=== PATIENT | male | born 1975 | race Caucasian/White ===

== ENCOUNTER 2023-12-05 14:14 | Emergency (ER) | payer MEDICAID ==
[~2023-12-05] VITALS: Ht 167.6 cm; Wt 100.6 kg
[2023-12-05 14:23] VITALS: BP 157/81; PULSE 90; RESP 18; TEMP 98; O2SAT 96
[2023-12-05] MEDS: TETanus/Pertussis (Acell)/Diphther VAC/PF (Tdap-Adult) 0.5ml syringe IMVAC ONE (15:56)
[2023-12-05] MEDS: LIDOcaine 1% W/epiNEPHrine 1:100,000 20ml vial SQ ONE (16:13)
== END 2023-12-05 18:38 | disposition left against medical advice (07) ==
LOC: ER 14:16
DX: S61.411A Laceration without foreign body of right hand, initial encounter (principal); X58.XXXA Exposure to other specified factors, initial encounter; Y93.89 Activity, other specified; Y92.89 Other specified places as the place of occurrence of the external cause; Y99.8 Other external cause status
CPT/HCPCS: 90471; 90715; 96372; 99284; J3490; J7030; 99283